=== PATIENT | female | born 1975 | race Caucasian/White ===

== ENCOUNTER 2020-09-14 13:31 | Emergency (ER) | payer OTHER ==
[~2020-09-14] VITALS: Ht 160 cm; Wt 86.2 kg
[2020-09-14 13:40] VITALS: BP 124/82
== END 2020-09-14 15:07 | disposition home or self-care (01) ==
LOC: ER 13:31
DX: U07.1 COVID-19 (principal); J12.89 Other viral pneumonia; J06.9 Acute upper respiratory infection, unspecified
CPT/HCPCS: 36415; 71045; 87426